=== PATIENT | male | born 1945 | race Caucasian/White ===

== ENCOUNTER 2017-08-02 01:53 | Emergency (ER) | payer MEDICARE, OTHER ==
[~2017-08-02] VITALS: Ht 165.1 cm; Wt 63.0 kg
[~2017-08-02 01:53] MED LIST: ATOR10TA84 PO; DOXA1 PO; DSS100 PO; FOLI1 PO; LISI-660 PO; PHOSLOC PO
[2017-08-02] MEDS ORDERED: CARV12.530 PO (02:09)
[2017-08-02] MEDS ORDERED: PANT40TA25 PO (02:09)
[2017-08-02] MEDS ORDERED: LISI40TA4 PO (02:09)
[2017-08-02] MEDS ORDERED: ATOR20TA65 PO (02:09)
[2017-08-02] MEDS ORDERED: AMLO10TA55 PO (02:09)
[2017-08-02] MEDS ORDERED: SEVEC800 PO (02:09)
[2017-08-02] MEDS ORDERED: CLON-570 PO (02:09)
[2017-08-02 04:47] LABS: BASOPHILS % (AUTO) 0.3 % (0.0-2.0); EOSINOPHILS % (AUTO) 2.1 % (1.0-6.0); HEMATOCRIT 35.2 % (41-53); HEMOGLOBIN 11.4 g/dL (13.5-17.5); LYMPHOCYTES # (AUTO) 0.8 K/uL (1.0-4.8); LYMPHOCYTES % (AUTO) 14.3 % (22.0-44.0); MEAN CORPUSCULAR HEMOGLOBIN 29.7 pg (26.0-34.0); MEAN CORPUSCULAR HGB CONC 32.4 G/dL (31.0-37.0); MEAN CORPUSCULAR VOLUME 92 fL (80-100); MONOCYTES # (AUTO) 0.7 K/uL (0.1-1.0); MONOCYTES % (AUTO) 12.5 % (2.0-9.0); NEUTROPHILS # (AUTO) 3.7 K/uL (1.8-7.7); NEUTROPHILS % (AUTO) 70.8 % (40.0-70.0); PLATELET COUNT (AUTO) 141 K/uL (150-450); RED BLOOD CELL COUNT(AUTO) 3.84 MIL/uL (4.50-5.90); RED CELL DISTRIBUTION WIDTH 17.9 % (11.5-14.5)
[2017-08-02 04:53] LABS: CALCIUM, TOTAL 8.8 mg/dL (8.8-10.5); CREATININE 7.92 mg/dL (0.60-1.30); POTASSIUM 4.1 mmol/L (3.5-5.1)
[2017-08-02 05:00] LABS: ALBUMIN 3.3 g/dL (3.4-5.0); BILIRUBIN,TOTAL 0.9 mg/dL (0.1-1.0); TOTAL PROTEIN, SERUM 8.3 g/dL (6.4-8.2)
[2017-08-02 05:25] VITALS: BP 127/63
[2017-08-03] MEDS ORDERED: ALBUTEROL SULFATE 2.5 MG/0.5 ML NEB SOLUTION NEB ONE (17:14)
[2017-08-03] MEDS ORDERED: IPRATROPIUM BROMIDE 0.5 MG/2.5 ML NEB SOLUTION NEB ONE (17:14)
== END 2017-08-02 05:58 | disposition home or self-care (01) ==
LOC: EMS 01:54
DX: J40 Bronchitis, not specified as acute or chronic (principal); I13.11 Hypertensive heart and chronic kidney disease without heart failure, with stage 5 chronic kidney disease, or end stage renal disease; E11.22 Type 2 diabetes mellitus with diabetic chronic kidney disease; N18.6 End stage renal disease; E78.00 Pure hypercholesterolemia, unspecified; Z99.2 Dependence on renal dialysis
CPT/HCPCS: 93005; 99285

== ENCOUNTER 2017-09-02 01:49 | Emergency (ER) | payer MEDICARE, OTHER ==
[~2017-09-02] VITALS: Ht 162.6 cm; Wt 63.6 kg
[~2017-09-02 01:49] MED LIST changes: +AMLO10TA55 PO; -ATOR10TA84 PO; +ATOR20TA65 PO; +CARV12.530 PO; +CLON-570 PO; -DSS100 PO; -LISI-660 PO; +LISI40TA4 PO; +PANT40TA25 PO; -PHOSLOC PO; +SEVEC800 PO
[2017-09-02 05:02] VITALS: BP 162/73
[2017-09-02 05:15] LABS: BASOPHILS % (AUTO) 0.8 % (0.0-2.0); EOSINOPHILS % (AUTO) 5.4 % (1.0-6.0); HEMATOCRIT 37.2 % (41-53); HEMOGLOBIN 11.8 g/dL (13.5-17.5); LYMPHOCYTES # (AUTO) 0.7 K/uL (1.0-4.8); LYMPHOCYTES % (AUTO) 15.6 % (22.0-44.0); MEAN CORPUSCULAR HEMOGLOBIN 29.2 pg (26.0-34.0); MEAN CORPUSCULAR HGB CONC 31.6 G/dL (31.0-37.0); MEAN CORPUSCULAR VOLUME 92 fL (80-100); MONOCYTES # (AUTO) 0.6 K/uL (0.1-1.0); MONOCYTES % (AUTO) 13.8 % (2.0-9.0); NEUTROPHILS % (AUTO) 64.4 % (40.0-70.0); PLATELET COUNT (AUTO) 103 K/uL (150-450); RED BLOOD CELL COUNT(AUTO) 4.03 MIL/uL (4.50-5.90); RED CELL DISTRIBUTION WIDTH 17.4 % (11.5-14.5)
[2017-09-02 05:27] LABS: CALCIUM, TOTAL 9.2 mg/dL (8.8-10.5); CREATININE 8.55 mg/dL (0.60-1.30); POTASSIUM 5.7 mmol/L (3.5-5.1)
[2017-09-02 05:34] LABS: ALBUMIN 3.7 g/dL (3.4-5.0); BILIRUBIN,TOTAL 0.7 mg/dL (0.1-1.0); TOTAL PROTEIN, SERUM 8.7 g/dL (6.4-8.2)
== END 2017-09-02 05:53 | disposition home or self-care (01) ==
LOC: EMS 01:50
DX: I13.11 Hypertensive heart and chronic kidney disease without heart failure, with stage 5 chronic kidney disease, or end stage renal disease (principal); E11.22 Type 2 diabetes mellitus with diabetic chronic kidney disease; N18.6 End stage renal disease; E78.00 Pure hypercholesterolemia, unspecified; Z99.2 Dependence on renal dialysis
CPT/HCPCS: 99285

== ENCOUNTER 2017-10-29 07:11 | Emergency (ER) | payer MEDICARE, OTHER ==
[~2017-10-29] VITALS: Ht 162.6 cm; Wt 62.0 kg
[2017-10-29 08:30] VITALS: BP 145/68
[2017-10-29] MEDS ORDERED: IBUPROFEN 600 MG TABLET PO ONE (09:15)
== END 2017-10-29 09:33 | disposition home or self-care (01) ==
LOC: EMS 07:11
DX: M26.602 Left temporomandibular joint disorder, unspecified (principal); E11.22 Type 2 diabetes mellitus with diabetic chronic kidney disease; I12.0 Hypertensive chronic kidney disease with stage 5 chronic kidney disease or end stage renal disease; N18.6 End stage renal disease; E78.00 Pure hypercholesterolemia, unspecified; Z99.2 Dependence on renal dialysis; Z79.899 Other long term (current) drug therapy
CPT/HCPCS: 99282

== ENCOUNTER 2018-03-23 02:54 | Inpatient (IN) | payer MEDICARE, OTHER ==
[~2018-03-23] VITALS: Ht 162.6 cm; Wt 64.4 kg
[2018-03-23] VITALS (7 sets, daily range): BP systolic 137–156; BP diastolic 58–90
[2018-03-23] MEDS ORDERED: MORPHINE SULFATE 4 MG/ML SYRINGE IVP ONE ×2 (03:30→05:00)
[2018-03-23 04:46] LABS: BASOPHILS % (AUTO) 0.1 % (0.0-2.0); EOSINOPHILS % (AUTO) 0.1 % (1.0-6.0); HEMATOCRIT 41.7 % (41-53); HEMOGLOBIN 13.4 g/dL (13.5-17.5); LYMPHOCYTES # (AUTO) 0.5 K/uL (1.0-4.8); LYMPHOCYTES % (AUTO) 7.4 % (22.0-44.0); MEAN CORPUSCULAR HEMOGLOBIN 29.4 pg (26.0-34.0); MEAN CORPUSCULAR HGB CONC 32.2 G/dL (31.0-37.0); MEAN CORPUSCULAR VOLUME 91 fL (80-100); MONOCYTES # (AUTO) 0.2 K/uL (0.1-1.0); MONOCYTES % (AUTO) 3.7 % (2.0-9.0); NEUTROPHILS # (AUTO) 5.9 K/uL (1.8-7.7); PLATELET COUNT (AUTO) 144 K/uL (150-450); RED BLOOD CELL COUNT(AUTO) 4.57 MIL/uL (4.50-5.90); RED CELL DISTRIBUTION WIDTH 17.8 % (11.5-14.5)
[2018-03-23 04:47] LABS: NEUTROPHILS % (AUTO) 88.7 % (40.0-70.0)
[2018-03-23 04:49] LABS: CALCIUM, TOTAL 9.3 mg/dL (8.8-10.5); CREATININE 9.3 mg/dL (0.60-1.30); POTASSIUM 5.8 mmol/L (3.5-5.1)
[2018-03-23 04:56] LABS: ALBUMIN 3.4 g/dL (3.4-5.0); BILIRUBIN,TOTAL 0.5 mg/dL (0.1-1.0); TOTAL PROTEIN, SERUM 8.9 g/dL (6.4-8.2)
[2018-03-23] MEDS ORDERED: ACETAMINOPHEN 325 MG TABLET PO PRN (05:30)
[2018-03-23] MEDS ORDERED: ONDANSETRON HCL 4 MG/2 ML VIAL IVP PRN ×2 (05:30→08:30)
[2018-03-23] MEDS ORDERED: MORPHINE SULFATE 2 MG/ML SYRINGE IVP PRN (05:30)
[2018-03-23] MEDS ORDERED: 0.9% SODIUM CHLORIDE 10 ML SYRINGE IVP PRN (05:30)
[2018-03-23] MEDS ORDERED: SODIUM CHLORIDE 0.9% 1,000 ML IV ONE (08:30)
[2018-03-23] MEDS ORDERED: BISACODYL 10 MG RECTAL RECTAL SUPPOSITORY PR PRN (08:30)
[2018-03-23] MEDS ORDERED: MAGNESIUM HYDROXIDE SUSPENSION 30 ML UDCUP PO PRN (08:30)
[2018-03-23] MEDS ORDERED: ZOLPIDEM TARTRATE 5 MG TABLET PO PRN (08:30)
[2018-03-23] MEDS: DOCUSATE SODIUM 100 MG CAPSULE PO SCH ×2 (09:00→20:21)
[2018-03-23] MEDS: PANTOPRAZOLE SODIUM 40 MG DR TABLET PO SCH (09:00)
[2018-03-23] MEDS: MORPHINE SULFATE 2 MG/ML SYRINGE IVP PRN (12:33)
[2018-03-23] MEDS: HYDROCODONE/ACETAMINOPHEN 5-325 MG TABLET PO PRN (15:12)
[2018-03-23] MEDS: CloNIDine HCL 0.1 MG TABLET PO SCH ×2 (16:31→20:20)
[2018-03-23] MEDS: HEPARIN SODIUM,PORCINE 5,000 UNITS/ML VIAL SQ SCH ×2 (16:31→23:45)
[2018-03-23] MEDS: SODIUM CHLORIDE 0.9% 1,000 ML IV SCH (16:32)
[2018-03-23] MEDS: SEVELAMER CARBONATE 800 MG TABLET PO SCH (18:00)
[2018-03-23] MEDS: CARVEDILOL 12.5 MG TABLET PO SCH (20:21)
[2018-03-23] MEDS: AmLODIPine BESYLATE 10 MG TABLET PO SCH (20:21)
[2018-03-23] MEDS: ACETAMINOPHEN 325 MG TABLET PO PRN (23:45)
[2018-03-24] MEDS: MORPHINE SULFATE 2 MG/ML SYRINGE IVP PRN (03:29)
[2018-03-24] MEDS: SODIUM CHLORIDE 0.9% 1,000 ML IV SCH ×2 (04:34→17:30)
[2018-03-24 04:47] VITALS: BP 120/53
[2018-03-24 06:18] LABS: BASOPHILS % (AUTO) 0.2 % (0.0-2.0); EOSINOPHILS % (AUTO) 0.4 % (1.0-6.0); HEMATOCRIT 41.6 % (41-53); HEMOGLOBIN 13.2 g/dL (13.5-17.5); LYMPHOCYTES # (AUTO) 0.5 K/uL (1.0-4.8); LYMPHOCYTES % (AUTO) 4.9 % (22.0-44.0); MEAN CORPUSCULAR HEMOGLOBIN 29.2 pg (26.0-34.0); MEAN CORPUSCULAR HGB CONC 31.8 G/dL (31.0-37.0); MEAN CORPUSCULAR VOLUME 92 fL (80-100); MONOCYTES % (AUTO) 9.4 % (2.0-9.0); NEUTROPHILS # (AUTO) 9.4 K/uL (1.8-7.7); NEUTROPHILS % (AUTO) 85.1 % (40.0-70.0); PLATELET COUNT (AUTO) 124 K/uL (150-450); RED BLOOD CELL COUNT(AUTO) 4.52 MIL/uL (4.50-5.90)
[2018-03-24] MEDS: ACETAMINOPHEN 325 MG TABLET PO PRN (06:36)
[2018-03-24 07:11] LABS: ALBUMIN 3.1 g/dL (3.4-5.0); BILIRUBIN,TOTAL 0.8 mg/dL (0.1-1.0); CALCIUM, TOTAL 9.1 mg/dL (8.8-10.5); CHOL/HDL RATIO 3.1 (4.2-7.3); CREATININE 7.68 mg/dL (0.60-1.30); PHOSPHORUS 6.7 mg/dL (2.5-4.9); POTASSIUM 5.4 mmol/L (3.5-5.1); TOTAL PROTEIN, SERUM 8.4 g/dL (6.4-8.2)
[2018-03-24 07:30] VITALS: BP 138/61
[2018-03-24] MEDS: SEVELAMER CARBONATE 800 MG TABLET PO SCH ×3 (08:00→17:30)
[2018-03-24] MEDS: HEPARIN SODIUM,PORCINE 5,000 UNITS/ML VIAL SQ SCH ×2 (08:00→16:00)
[2018-03-24] MEDS ORDERED: LISINOPRIL 20 MG TABLET PO SCH (09:00)
[2018-03-24] MEDS: CloNIDine HCL 0.1 MG TABLET PO SCH ×3 (09:52→20:58)
[2018-03-24] MEDS: CARVEDILOL 12.5 MG TABLET PO SCH ×2 (09:53→20:58)
[2018-03-24] MEDS: DOCUSATE SODIUM 100 MG CAPSULE PO SCH ×2 (09:53→20:58)
[2018-03-24] MEDS: ATORVASTATIN CALCIUM 20 MG TABLET PO SCH (09:53)
[2018-03-24] MEDS: VITAMIN B COMP/VIT C/FOLIC ACID CAPSULE PO SCH (09:53)
[2018-03-24] MEDS: FOLIC ACID 1 MG TABLET PO SCH (09:53)
[2018-03-24] MEDS: PANTOPRAZOLE SODIUM 40 MG DR TABLET PO SCH (09:53)
[2018-03-24] MEDS: LOSARTAN POTASSIUM 50 MG TABLET PO SCH (09:57)
[2018-03-24] MEDS: HYDROCODONE/ACETAMINOPHEN 5-325 MG TABLET PO PRN ×2 (10:22→19:33)
[2018-03-24 11:23] LABS: GLUCOMETER DEV NAME(LOC) 5N 1P; GLUCOSE,POINT OF CARE 137 MG/DL (70-110)
[2018-03-24 11:38] VITALS: BP 117/51
[2018-03-24 15:56] VITALS: BP 153/78
[2018-03-24 19:51] VITALS: BP 145/62
[2018-03-24] MEDS: AmLODIPine BESYLATE 10 MG TABLET PO SCH (20:58)
[2018-03-25] VITALS (7 sets, daily range): BP systolic 122–145; BP diastolic 53–70
[2018-03-25] MEDS: HYDROCODONE/ACETAMINOPHEN 5-325 MG TABLET PO PRN ×3 (00:10→10:36)
[2018-03-25] MEDS: HEPARIN SODIUM,PORCINE 5,000 UNITS/ML VIAL SQ SCH ×4 (00:10→23:46)
[2018-03-25] MEDS: SODIUM CHLORIDE 0.9% 1,000 ML IV SCH (05:59)
[2018-03-25 06:52] LABS: BASOPHILS % (AUTO) 0.2 % (0.0-2.0); EOSINOPHILS % (AUTO) 1.2 % (1.0-6.0); HEMATOCRIT 39.5 % (41-53); HEMOGLOBIN 12.6 g/dL (13.5-17.5); LYMPHOCYTES # (AUTO) 0.6 K/uL (1.0-4.8); LYMPHOCYTES % (AUTO) 5.9 % (22.0-44.0); MEAN CORPUSCULAR HEMOGLOBIN 29.1 pg (26.0-34.0); MEAN CORPUSCULAR HGB CONC 31.8 G/dL (31.0-37.0); MEAN CORPUSCULAR VOLUME 92 fL (80-100); MONOCYTES % (AUTO) 9.5 % (2.0-9.0); NEUTROPHILS # (AUTO) 9.2 K/uL (1.8-7.7); NEUTROPHILS % (AUTO) 83.2 % (40.0-70.0); PLATELET COUNT (AUTO) 122 K/uL (150-450); RED BLOOD CELL COUNT(AUTO) 4.31 MIL/uL (4.50-5.90); RED CELL DISTRIBUTION WIDTH 17.6 % (11.5-14.5)
[2018-03-25 07:05] LABS: BILIRUBIN,TOTAL 0.8 mg/dL (0.1-1.0); CALCIUM, TOTAL 9.1 mg/dL (8.8-10.5); CREATININE 9.56 mg/dL (0.60-1.30); PHOSPHORUS 7.4 mg/dL (2.5-4.9); POTASSIUM 5.3 mmol/L (3.5-5.1); TOTAL PROTEIN, SERUM 8.5 g/dL (6.4-8.2)
[2018-03-25] MEDS: SEVELAMER CARBONATE 800 MG TABLET PO SCH ×3 (08:00→18:17)
[2018-03-25] MEDS: PANTOPRAZOLE SODIUM 40 MG DR TABLET PO SCH (10:36)
[2018-03-25] MEDS: VITAMIN B COMP/VIT C/FOLIC ACID CAPSULE PO SCH (10:36)
[2018-03-25] MEDS: CARVEDILOL 12.5 MG TABLET PO SCH ×2 (10:37→20:23)
[2018-03-25] MEDS: CloNIDine HCL 0.1 MG TABLET PO SCH ×3 (10:37→20:23)
[2018-03-25] MEDS: LOSARTAN POTASSIUM 50 MG TABLET PO SCH (10:37)
[2018-03-25] MEDS: ATORVASTATIN CALCIUM 20 MG TABLET PO SCH (10:37)
[2018-03-25] MEDS: FOLIC ACID 1 MG TABLET PO SCH (10:37)
[2018-03-25] MEDS: DOCUSATE SODIUM 100 MG CAPSULE PO SCH ×2 (10:37→20:23)
[2018-03-25] MEDS: AmLODIPine BESYLATE 10 MG TABLET PO SCH (20:23)
[2018-03-26 04:29] VITALS: BP 107/69
[2018-03-26 05:56] LABS: BASOPHILS % (AUTO) 0.3 % (0.0-2.0); EOSINOPHILS % (AUTO) 2.9 % (1.0-6.0); HEMATOCRIT 35.7 % (41-53); HEMOGLOBIN 11.4 g/dL (13.5-17.5); LYMPHOCYTES # (AUTO) 0.6 K/uL (1.0-4.8); LYMPHOCYTES % (AUTO) 7.7 % (22.0-44.0); MEAN CORPUSCULAR HEMOGLOBIN 29.5 pg (26.0-34.0); MEAN CORPUSCULAR VOLUME 92 fL (80-100); MONOCYTES # (AUTO) 0.8 K/uL (0.1-1.0); MONOCYTES % (AUTO) 10.9 % (2.0-9.0); NEUTROPHILS # (AUTO) 5.8 K/uL (1.8-7.7); NEUTROPHILS % (AUTO) 78.2 % (40.0-70.0); PLATELET COUNT (AUTO) 118 K/uL (150-450); RED BLOOD CELL COUNT(AUTO) 3.87 MIL/uL (4.50-5.90); RED CELL DISTRIBUTION WIDTH 17.8 % (11.5-14.5)
[2018-03-26 06:13] LABS: ALBUMIN 2.7 g/dL (3.4-5.0); BILIRUBIN,TOTAL 0.8 mg/dL (0.1-1.0); CALCIUM, TOTAL 8.9 mg/dL (8.8-10.5); CREATININE 11.32 mg/dL (0.60-1.30); MAGNESIUM 2.1 mg/dL (1.80-2.40); PHOSPHORUS 6.1 mg/dL (2.5-4.9); POTASSIUM 5.4 mmol/L (3.5-5.1); TOTAL PROTEIN, SERUM 7.7 g/dL (6.4-8.2)
[2018-03-26 07:21] VITALS: BP 138/59
[2018-03-26] MEDS: VITAMIN B COMP/VIT C/FOLIC ACID CAPSULE PO SCH (07:55)
[2018-03-26] MEDS: ATORVASTATIN CALCIUM 20 MG TABLET PO SCH (07:55)
[2018-03-26] MEDS: SEVELAMER CARBONATE 800 MG TABLET PO SCH ×2 (07:55→12:00)
[2018-03-26] MEDS: PANTOPRAZOLE SODIUM 40 MG DR TABLET PO SCH (07:56)
[2018-03-26] MEDS: DOCUSATE SODIUM 100 MG CAPSULE PO SCH (07:56)
[2018-03-26] MEDS: FOLIC ACID 1 MG TABLET PO SCH (07:56)
[2018-03-26] MEDS: HYDROCODONE/ACETAMINOPHEN 5-325 MG TABLET PO PRN (07:56)
[2018-03-26] MEDS: HEPARIN SODIUM,PORCINE 5,000 UNITS/ML VIAL SQ SCH ×2 (08:00→16:00)
[2018-03-26] MEDS: CARVEDILOL 12.5 MG TABLET PO SCH (09:00)
[2018-03-26] MEDS: LOSARTAN POTASSIUM 50 MG TABLET PO SCH (09:00)
[2018-03-26] MEDS: CloNIDine HCL 0.1 MG TABLET PO SCH ×2 (09:00→16:00)
[2018-03-26] MEDS ORDERED: BISACODYL 10 MG RECTAL RECTAL SUPPOSITORY PR ONE (10:45)
[2018-03-26] MEDS ORDERED: BISACODYL 5 MG EC TABLET PO PRN (10:45)
[2018-03-26] MEDS ORDERED: FOLI1CAP2 PO (10:47)
[2018-03-26] MEDS ORDERED: BISA10S PR (10:48)
[2018-03-26 11:01] VITALS: BP 137/71
[2018-03-26] MEDS ORDERED: MANNITOL 25%-12.5 GM/50 ML VIAL IVP PRN (13:15)
[2018-03-26 16:17] VITALS: BP 138/68
== END 2018-03-26 16:55 | disposition home or self-care (01) | DRG 438 ==
LOC: EMS 02:55 → 6N 05:30 → 5N 09:45
PROVIDERS: ADMIT Internal Medicine; ATTEND Internal Medicine
PROC: 5A1D70Z Performance of Urinary Filtration, Intermittent, Less than 6 Hours Per Day (ICD-10-PCS; principal; 2018-03-23)
PROC: 5A1D70Z Performance of Urinary Filtration, Intermittent, Less than 6 Hours Per Day (ICD-10-PCS; 2018-03-26)
DX: K85.10 Biliary acute pancreatitis without necrosis or infection (principal); N18.6 End stage renal disease; I13.2 Hypertensive heart and chronic kidney disease with heart failure and with stage 5 chronic kidney disease, or end stage renal disease; E11.22 Type 2 diabetes mellitus with diabetic chronic kidney disease; D64.9 Anemia, unspecified; I50.9 Heart failure, unspecified; E11.21 Type 2 diabetes mellitus with diabetic nephropathy; E87.5 Hyperkalemia; K57.30 Diverticulosis of large intestine without perforation or abscess without bleeding; N20.0 Calculus of kidney; K80.20 Calculus of gallbladder without cholecystitis without obstruction; K74.60 Unspecified cirrhosis of liver; I25.10 Atherosclerotic heart disease of native coronary artery without angina pectoris; E78.5 Hyperlipidemia, unspecified; E78.00 Pure hypercholesterolemia, unspecified; Z79.899 Other long term (current) drug therapy; Z99.2 Dependence on renal dialysis
CPT/HCPCS: 74176; 76700; 83735; 84100; 87081; 87340; 93005; 93306; 96374; 96375; 96376; 99285; J1644; J2270; J2405; J7030

== ENCOUNTER 2018-05-29 13:54 | Inpatient (IN) | payer OTHER ==
[~2018-05-29] VITALS: Ht 162.6 cm; Wt 58.5 kg
[~2018-05-29 13:54] MED LIST changes: +BISA10S PR; +FOLI1CAP2 PO
[2018-05-29 14:14] LABS: GLUCOSE,POINT OF CARE 122 MG/DL (70-110)
[2018-05-29] MEDS ORDERED: PB/HYOSCY/ATR/SCOP/LIDO/MAALOX 55 ML BOTTLE PO ONE (15:45)
[2018-05-29] MEDS ORDERED: ASPIRIN 81 MG CHEWABLE TABLET PO ONE (16:30)
[2018-05-29 16:42] LABS: BASOPHILS % (AUTO) 0.7 % (0.0-2.0); EOSINOPHILS % (AUTO) 0.7 % (1.0-6.0); HEMOGLOBIN 11.1 g/dL (13.5-17.5); LYMPHOCYTES # (AUTO) 0.7 K/uL (1.0-4.8); LYMPHOCYTES % (AUTO) 8.4 % (22.0-44.0); MEAN CORPUSCULAR HEMOGLOBIN 28.1 pg (26.0-34.0); MEAN CORPUSCULAR HGB CONC 31.8 G/dL (31.0-37.0); MEAN CORPUSCULAR VOLUME 88 fL (80-100); MONOCYTES # (AUTO) 0.8 K/uL (0.1-1.0); MONOCYTES % (AUTO) 10.6 % (2.0-9.0); NEUTROPHILS # (AUTO) 6.2 K/uL (1.8-7.7); NEUTROPHILS % (AUTO) 79.6 % (40.0-70.0); PLATELET COUNT (AUTO) 128 K/uL (150-450); RED BLOOD CELL COUNT(AUTO) 3.96 MIL/uL (4.50-5.90); RED CELL DISTRIBUTION WIDTH 19.1 % (11.5-14.5)
[2018-05-29 17:00] LABS: CALCIUM, TOTAL 9.5 mg/dL (8.8-10.5); CREATININE 7.69 mg/dL (0.60-1.30); POTASSIUM 4.8 mmol/L (3.5-5.1)
[2018-05-29 17:06] LABS: ALBUMIN 3.2 g/dL (3.4-5.0); BILIRUBIN,TOTAL 0.7 mg/dL (0.1-1.0); TOTAL PROTEIN, SERUM 8.5 g/dL (6.4-8.2)
[2018-05-29 20:29] VITALS: BP 142/65
[2018-05-29] MEDS ORDERED: MAGNESIUM HYDROXIDE SUSPENSION 30 ML UDCUP PO PRN (21:30)
[2018-05-29] MEDS ORDERED: BISACODYL 10 MG RECTAL RECTAL SUPPOSITORY PR PRN (21:30)
[2018-05-29] MEDS ORDERED: ACETAMINOPHEN 325 MG TABLET PO PRN (21:30)
[2018-05-29] MEDS ORDERED: MORPHINE SULFATE 2 MG/ML SYRINGE IVP PRN (21:30)
[2018-05-29] MEDS ORDERED: ONDANSETRON HCL 4 MG/2 ML VIAL IVP PRN (21:30)
[2018-05-29] MEDS ORDERED: ZOLPIDEM TARTRATE 5 MG TABLET PO PRN (21:30)
[2018-05-29] MEDS ORDERED: HYDROCODONE/ACETAMINOPHEN 5-325 MG TABLET PO PRN (21:30)
[2018-05-29] MEDS ORDERED: INDOMETHACIN 25 MG CAPSULE PO PRN (21:30)
[2018-05-29] MEDS: HEPARIN SODIUM,PORCINE 5,000 UNITS/ML VIAL SQ SCH (23:59)
[2018-05-30] VITALS (8 sets, daily range): BP systolic 127–155; BP diastolic 59–92
[2018-05-30 06:48] LABS: BASOPHILS % (AUTO) 0.4 % (0.0-2.0); EOSINOPHILS % (AUTO) 4.5 % (1.0-6.0); HEMATOCRIT 33.9 % (41-53); HEMOGLOBIN 11.1 g/dL (13.5-17.5); LYMPHOCYTES # (AUTO) 0.8 K/uL (1.0-4.8); LYMPHOCYTES % (AUTO) 13.5 % (22.0-44.0); MEAN CORPUSCULAR HEMOGLOBIN 28.4 pg (26.0-34.0); MEAN CORPUSCULAR HGB CONC 32.7 G/dL (31.0-37.0); MEAN CORPUSCULAR VOLUME 87 fL (80-100); MONOCYTES # (AUTO) 0.7 K/uL (0.1-1.0); MONOCYTES % (AUTO) 11.1 % (2.0-9.0); NEUTROPHILS # (AUTO) 4.4 K/uL (1.8-7.7); NEUTROPHILS % (AUTO) 70.5 % (40.0-70.0); PLATELET COUNT (AUTO) 129 K/uL (150-450)
[2018-05-30 07:05] LABS: CALCIUM, TOTAL 8.9 mg/dL (8.8-10.5); CREATININE 9.44 mg/dL (0.60-1.30); POTASSIUM 4.9 mmol/L (3.5-5.1)
[2018-05-30 07:47] LABS: APPEARANCE,URINE CLEAR (CLEAR); BILIRUBIN,URINE NEGATIVE (NEGATIVE); GLUCOSE, URINE (UA) NEGATIVE (NEGATIVE); KETONES,URINE NEGATIVE (NEGATIVE); LEUKOCYTE ESTERASE ,URINE NEGATIVE (NEGATIVE); NITRATE,URINE NEGATIVE (NEGATIVE); OCCULT BLOOD,URINE NEGATIVE (NEGATIVE); PROTEIN,URINE SEE CONFIRM (NEGATIVE); UROBILINOGEN,URINE 0.2 mg/dL (<=1.0)
[2018-05-30 07:55] LABS: SULFOSALICYLIC ACID,URINE 3+ (Negative)
[2018-05-30 08:00] LABS: BACTERIA,URINE None Seen /HPF (None Seen); RBC,URINE None Seen /HPF (0-2); SQUAMOUS EPITHELIAL CELL,UR Rare /LPF (None Seen); WBC,URINE 0-2 /HPF (0-5)
[2018-05-30] MEDS ORDERED: MAG HYDROX/AL HYDROX/SIMETH 30 ML SUSP UDCUP PO ONE (08:15)
[2018-05-30] MEDS: HEPARIN SODIUM,PORCINE 5,000 UNITS/ML VIAL SQ SCH ×2 (08:48→17:44)
[2018-05-30] MEDS: SEVELAMER CARBONATE 800 MG TABLET PO SCH ×3 (08:48→17:45)
[2018-05-30] MEDS: DOCUSATE SODIUM 100 MG CAPSULE PO SCH ×2 (09:00→20:35)
[2018-05-30] MEDS: CARVEDILOL 12.5 MG TABLET PO SCH ×2 (09:00→23:57)
[2018-05-30] MEDS: CloNIDine HCL 0.1 MG TABLET PO SCH ×3 (09:00→23:57)
[2018-05-30] MEDS: LISINOPRIL 20 MG TABLET PO SCH (09:00)
[2018-05-30] MEDS: AmLODIPine BESYLATE 10 MG TABLET PO SCH ×2 (09:00→20:35)
[2018-05-30] MEDS ORDERED: SODIUM CHLORIDE 0.9% 2,000 ML IV ONE (15:32)
[2018-05-30] MEDS: ATORVASTATIN CALCIUM 20 MG TABLET PO SCH (17:42)
[2018-05-30] MEDS: PANTOPRAZOLE SODIUM 40 MG DR TABLET PO SCH (17:43)
[2018-05-30] MEDS ORDERED: METOPROLOL TARTRATE 5 MG/5 ML VIAL IVP ONE (17:45)
[2018-05-31 04:19] VITALS: BP 118/62
[2018-05-31 06:56] LABS: BASOPHILS % (AUTO) 0.5 % (0.0-2.0); HEMATOCRIT 39.7 % (41-53); HEMOGLOBIN 12.8 g/dL (13.5-17.5); LYMPHOCYTES # (AUTO) 0.7 K/uL (1.0-4.8); LYMPHOCYTES % (AUTO) 9.3 % (22.0-44.0); MEAN CORPUSCULAR HEMOGLOBIN 28.7 pg (26.0-34.0); MEAN CORPUSCULAR HGB CONC 32.2 G/dL (31.0-37.0); MEAN CORPUSCULAR VOLUME 89 fL (80-100); MONOCYTES # (AUTO) 0.8 K/uL (0.1-1.0); MONOCYTES % (AUTO) 9.8 % (2.0-9.0); NEUTROPHILS # (AUTO) 5.7 K/uL (1.8-7.7); NEUTROPHILS % (AUTO) 74.4 % (40.0-70.0); PLATELET COUNT (AUTO) 144 K/uL (150-450); RED BLOOD CELL COUNT(AUTO) 4.46 MIL/uL (4.50-5.90); RED CELL DISTRIBUTION WIDTH 19.1 % (11.5-14.5)
[2018-05-31 07:12] VITALS: BP 135/67
[2018-05-31] MEDS: HEPARIN SODIUM,PORCINE 5,000 UNITS/ML VIAL SQ SCH ×3 (08:14→16:00)
[2018-05-31] MEDS: SEVELAMER CARBONATE 800 MG TABLET PO SCH ×3 (08:15→18:00)
[2018-05-31] MEDS: LISINOPRIL 20 MG TABLET PO SCH (08:15)
[2018-05-31] MEDS: PANTOPRAZOLE SODIUM 40 MG DR TABLET PO SCH (08:15)
[2018-05-31] MEDS: CARVEDILOL 12.5 MG TABLET PO SCH (08:15)
[2018-05-31] MEDS: ATORVASTATIN CALCIUM 20 MG TABLET PO SCH (08:15)
[2018-05-31] MEDS: CloNIDine HCL 0.1 MG TABLET PO SCH ×2 (08:15→16:33)
[2018-05-31] MEDS: DOCUSATE SODIUM 100 MG CAPSULE PO SCH (08:15)
[2018-05-31 10:35] LABS: AMYLASE 231 U/L (25-115); LIPASE 1115 U/L (73-393)
[2018-05-31 11:15] VITALS: BP 133/71
[2018-05-31 15:48] VITALS: BP 128/61
[2018-05-31 16:29] LABS: CALCIUM, TOTAL 9.5 mg/dL (8.8-10.5); CREATININE 8.21 mg/dL (0.60-1.30); POTASSIUM 5.4 mmol/L (3.5-5.1)
[2018-05-31 16:35] LABS: ALBUMIN 3.1 g/dL (3.4-5.0); BILIRUBIN,TOTAL 0.7 mg/dL (0.1-1.0); TOTAL PROTEIN, SERUM 9.2 g/dL (6.4-8.2)
== END 2018-05-31 18:05 | disposition home or self-care (01) | DRG 438 ==
LOC: EMS 13:55 → 5S 18:18
PROVIDERS: ADMIT Internal Medicine; ATTEND Internal Medicine
PROC: 5A1D70Z Performance of Urinary Filtration, Intermittent, Less than 6 Hours Per Day (ICD-10-PCS; principal; 2018-05-30)
DX: K85.10 Biliary acute pancreatitis without necrosis or infection (principal); N18.6 End stage renal disease; I12.0 Hypertensive chronic kidney disease with stage 5 chronic kidney disease or end stage renal disease; I31.9 Disease of pericardium, unspecified; D64.9 Anemia, unspecified; K21.9 Gastro-esophageal reflux disease without esophagitis; E78.5 Hyperlipidemia, unspecified; E11.22 Type 2 diabetes mellitus with diabetic chronic kidney disease; E78.00 Pure hypercholesterolemia, unspecified; I48.91 Unspecified atrial fibrillation; K80.20 Calculus of gallbladder without cholecystitis without obstruction; Z79.899 Other long term (current) drug therapy; Z90.49 Acquired absence of other specified parts of digestive tract; Z99.2 Dependence on renal dialysis
CPT/HCPCS: 87081; 87340; 90935; 93005; 93306; G0378; J1644; J3490; J7030

== ENCOUNTER 2019-02-02 22:41 | Emergency (ER) | payer MEDICARE, OTHER ==
[~2019-02-02] VITALS: Ht 162.6 cm; Wt 60.0 kg
[~2019-02-02 22:41] MED LIST changes: -DOXA1 PO; -FOLI1CAP2 PO
[2019-02-02] MEDS ORDERED: AMIO200T44 PO (22:55)
[2019-02-02] MEDS ORDERED: FAMO20 PO (22:55)
[2019-02-02] MEDS ORDERED: ALLO100T PO (22:55)
[2019-02-02] MEDS ORDERED: METO25 PO (22:55)
[2019-02-02] MEDS ORDERED: ASPI-556 PO (22:55)
[2019-02-02] MEDS ORDERED: POLY238P2 PO (22:55)
[2019-02-02] MEDS ORDERED: DOCU250C91 PO (22:55)
[2019-02-02] MEDS ORDERED: MELA3TAB66 PO (22:55)
[2019-02-02] MEDS ORDERED: HYDR-2924 PO (22:55)
[2019-02-02] MEDS ORDERED: MIRT15 PO (22:55)
[2019-02-02] MEDS ORDERED: ATOR40TA28 PO (22:55)
[2019-02-03 00:23] VITALS: BP 165/82
== END 2019-02-03 01:09 | disposition home or self-care (01) ==
LOC: EMS 22:44
DX: K59.00 Constipation, unspecified (principal); M79.651 Pain in right thigh; E11.22 Type 2 diabetes mellitus with diabetic chronic kidney disease; I13.11 Hypertensive heart and chronic kidney disease without heart failure, with stage 5 chronic kidney disease, or end stage renal disease; N18.6 End stage renal disease; E78.00 Pure hypercholesterolemia, unspecified; Z99.2 Dependence on renal dialysis; Z95.1 Presence of aortocoronary bypass graft; Z79.899 Other long term (current) drug therapy; Z98.890 Other specified postprocedural states; Z91.041 Radiographic dye allergy status; Z88.8 Allergy status to other drugs, medicaments and biological substances
CPT/HCPCS: 93005